=== PATIENT | male | born 1950 | race Caucasian/White ===

== ENCOUNTER 2020-03-14 10:31 | Emergency (ER) | payer MEDICARE, BC ==
[~2020-03-14] VITALS: Ht 175.3 cm; Wt 93.0 kg
[~2020-03-14 10:31] MED LIST: ATACAND HCT 321 EACH PO; CELEXA20 MG PO; CIPRO500 M1 PO; HYDROCODONE-AP1 EAC6 PO; NEURONTIN 300300 M1 PO; TRAZODONE HCL100 MG PO
[2020-03-14 11:34] LABS: CALCIUM 8.8 mg/dL (8.5-10.1); CREATININE 0.9 mg/dL (0.6-1.3)
[2020-03-14] MEDS ORDERED: NORCO 5-325 TA1 EAC1 PO (12:04)
[2020-03-14] MEDS ORDERED: FLEXERIL PO (12:04)
[2020-03-14 12:58] VITALS: BP 137/91
== END 2020-03-14 12:46 | disposition home or self-care (01) ==
LOC: M.ERS 10:31
PROVIDERS: Emergency Medicine Emergency Medical Services
DX: M79.662 Pain in left lower leg (principal); I10 Essential (primary) hypertension; F41.9 Anxiety disorder, unspecified; Z87.442 Personal history of urinary calculi; Z88.8 Allergy status to other drugs, medicaments and biological substances